=== PATIENT | male | born 1975 | race Caucasian/White ===

== ENCOUNTER 2022-06-13 15:33 | Emergency (ER) | payer SELFPAY ==
[~2022-06-13] VITALS: Ht 167.6 cm; Wt 73.0 kg
[2022-06-13 15:43] VITALS: BP 109/85
== END 2022-06-13 22:14 | disposition left against medical advice (07) ==
LOC: ER 15:33
DX: Z53.21 Procedure and treatment not carried out due to patient leaving prior to being seen by health care provider (principal)